=== PATIENT | male | born 1980 | race Caucasian/White ===

== ENCOUNTER 2016-06-05 06:45 | Emergency (ER) | payer OTHER ==
[2016-06-05] MEDS ORDERED: ONDANSETRON ODT 4 MG TAB ONE (20:17)
== END 2016-06-05 07:37 | disposition home or self-care (01) ==
LOC: ER 06:45
DX: H66.002 Acute suppurative otitis media without spontaneous rupture of ear drum, left ear (principal); H60.312 Diffuse otitis externa, left ear